=== PATIENT | male | born 1975 | race Caucasian/White ===

== ENCOUNTER → 2016-08-25 | Outpatient (CLI) | payer OTHER ==
--- NOTE | 2016-08-27 16:06 | CR ---
EXAM DATE: 08/25/16 PATIENT'S AGE: 41 Patient: DEDRA MEDEROS Facility: [place], [place] Site . Site : 1975 Study: XRay Knee Right [id number]/28/2017 9:07:26 AM Ordering Physician: Fidel Dugan Pa-C Final Report: Clinical indication : Pain. Findings: Weightbearing views have been obtained. No bone or joint abnormality is identified. The knee joint spaces are well maintained. There is no fracture, dislocation or joint effusion. Impression: Negative study. Dictated by Tiago Caraballo MD @ Aug 25 2016 9:12AM (Electronic Signature) Report Signed by Proxy. STACY
== END ==
LOC: MW.CHORTHO 07:59
PROVIDERS: ATTEND Physician Assistant
DX: M25.561 Pain in right knee (principal)
CPT/HCPCS: 73564-26-RT; 73564-RT